=== PATIENT | female | born 2000 | race Caucasian/White ===

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

== ENCOUNTER 2022-01-17 01:15 | Emergency (ER) | payer MEDICAID, OTHER ==
[~2022-01-17] VITALS: Ht 165.1 cm; Wt 145.4 kg
[2022-01-17 02:11] VITALS: BP 151/73
== END 2022-01-17 02:22 | disposition home or self-care (01) ==
LOC: EMS 01:16
DX: F41.9 Anxiety disorder, unspecified (principal); J45.909 Unspecified asthma, uncomplicated
CPT/HCPCS: 93005; 99284; Z7502